=== PATIENT | male | born 1955 | race African-American/Black ===

== ENCOUNTER 2018-07-30 09:43 | Emergency (ER) | payer OTHER ==
[~2018-07-30] VITALS: Ht 180.3 cm; Wt 75.5 kg
[2018-07-30 09:47] VITALS: Ht 180.3 cm; Wt 75.5 kg
[2018-07-30] MEDS ORDERED: LIPITOR40 MG PO (09:50)
[2018-07-30] MEDS ORDERED: GABAPENTIN100 MG (10:07)
[2018-07-30] MEDS ORDERED: TORADOL10 MG PO (13:04)
[2018-07-30] MEDS ORDERED: AUGMENTIN 875-11 TAB PO (13:04)
[2018-07-30 13:24] VITALS: BP 146/85
== END 2018-07-30 13:23 | disposition home or self-care (01) ==
LOC: D.ER 09:43
DX: L72.0 Epidermal cyst (principal); F17.210 Nicotine dependence, cigarettes, uncomplicated